=== PATIENT | male | born 1950 | race Caucasian/White ===

== ENCOUNTER 2017-11-15 08:53 | Emergency (ER) | payer OTHER ==
[~2017-11-15] VITALS: Ht 182.9 cm; Wt 85.7 kg
[2017-11-15] MEDS ORDERED: MECLIZINE HCL 25 MG TAB PO STA (09:18)
[2017-11-15] MEDS ORDERED: SODIUM CHLORIDE 0.9% 1000ML 1,000 ML IV STA (09:18)
[2017-11-15] MEDS ORDERED: LORAZEPAM 2 MG/ML 1 ML VIAL IV STA (09:18)
[2017-11-15] MEDS ORDERED: ONDANSETRON INJ 2 MG/ML 2 ML VIAL IV STA (09:18)
[2017-11-15 09:28] LABS: BASO % 0.6 %; BASO ABS # 0.04 K/uL (0-0.2); EOS % 3.8 %; EOS ABS # 0.27 K/uL (0-0.5); HEMATOCRIT 43.2 % (42-52); HEMOGLOBIN 15.3 g/dL (14.0-18.0); IG# 0.12 K/uL (0.00-0.02); LYMPH % 23.2 %; LYMPH ABS # 1.66 K/uL (1.2-3.4); MEAN CELL VOLUME 94.1 fL (80-100); MEAN CORPUSCULAR HEMOGLOBIN 33.3 pg (25-34); MEAN CORPUSCULAR HGB CONC 35.4 g/dl (32-36); MEAN PLATELET VOLUME 8.9 fL (7.4-10.4); MONO % 7.1 %; MONO ABS # 0.51 K/uL (0.11-0.59); NEUT % 63.6 %; NEUT ABS # 4.56 K/uL (1.4-6.5); PLATELET COUNT 131 K/uL (130-400); RED CELL DISTRIBUTION WIDTH CV 12.8 % (11.5-14.5); RED CELL DISTRIBUTION WIDTH SD 43.6 fL (36.4-46.3); WHITE BLOOD COUNT 7.16 K/uL (4.8-10.8)
[2017-11-15] MEDS ORDERED: TIOT1SPR INH (09:41)
[2017-11-15] MEDS ORDERED: ATRINS NEB ×2 (09:41→14:09)
[2017-11-15] MEDS ORDERED: SYMIN/8045 INH (09:41)
[2017-11-15] MEDS ORDERED: VENL75CA88 PO ×2 (09:41)
[2017-11-15] MEDS ORDERED: PRED20TA PO (09:41)
[2017-11-15] MEDS ORDERED: VNTHFA/IN INH (09:41)
[2017-11-15] MEDS ORDERED: PRAZ2CAP3 PO (09:41)
[2017-11-15] MEDS ORDERED: TRAZ100T29 PO (09:41)
[2017-11-15] MEDS ORDERED: ONDA4TAB46 PO (09:41)
[2017-11-15] MEDS ORDERED: ALBINS/ INH (09:41)
[2017-11-15] MEDS ORDERED: SIMV80TA2 PO (09:41)
[2017-11-15] MEDS ORDERED: PREG100C PO (09:41)
--- NOTE | 2017-11-15 09:56 | DIAGNOSTIC IMAGING REPORT ---
CT HEAD WITHOUT CONTRAST (CT) CLINICAL HISTORY: Nausea, dizziness. COMPARISON STUDY: No previous studies for comparison. TECHNIQUE: Axial CT of the brain is performed from the vertex to the skull base. IV contrast was not administered for this examination. A dose lowering technique was utilized adhering to the principles of ALARA. CT DOSE: 872.26 mGy.cm FINDINGS: No intra or extra-axial mass lesions are visualized. There is no CT evidence of acute cortical infarction. There is no evidence of midline shift. There is no acute hemorrhage. No calvarial fractures are visualized. There are patchy white matter hypodensities likely on a small vessel basis. There is no evidence of pathologic ventricular dilatation. There is right maxilla sinus mucosal thickening. There is mild ethmoid sinus mucosal thickening. IMPRESSION: No acute intracranial findings Electronically signed by: Jose Valencia M.D. 11/15/2017 9:54 AM Dictated Date/Time: 11/15/2017 9:53 AM
--- NOTE | 2017-11-15 10:00 | EMERGENCY ROOM VISIT NOTE ---
History Report prepared by Ninfa: Arleen Hernandez Under the Supervision of: Dr. Lizandro Dawn M.D. First contact with patient: 09:11 Chief Complaint: DIZZY Stated Complaint: NAUSEA/DIZZINESS Nursing Triage Summary: Patient arrived ALS from [place] clinic. Patient was getting out of car at [place] for appointment and was exeriencing extreme dizziness. EMS was called. Patient also experiencing nausea. Hx of vertigo in the past. History of Present Illness The patient is a 67 year old male who presents to the Emergency Room with complaints of constant dizziness starting this morning. The patient presents to the ED by EMS. He was feeling dizzy on his way to the [place] clinic today. He got out of the car and felt that he might pass out. He got down onto his hands and knees and then passed out. He notes that he is fatigued and did not sleep well last night. He has a history of vertigo. His symptoms today are worse than his previous vertigo. He has taken his medications today. He did not eat this morning. Source of History: patient Onset: this morning Position: head Quality: other (dizziness) Timing: constant Associated Symptoms: + LOC, + fatigue Review of Systems See HPI for pertinent positives & negatives. A total of 10 systems reviewed and were otherwise negative. Past Medical & Surgical Medical Problems: (1) ADHD (2) Bipolar disorder (3) BPH (benign prostatic hyperplasia) (4) Chronic back pain (5) COPD (chronic obstructive pulmonary disease) (6) Depression (7) Hyperlipidemia (8) Large cell lymphoma (9) PTSD (post-traumatic stress disorder) (10) Vertigo Surgical Problems: (1) S/P right knee arthroscopy Family History No pertinent family history stated Social History Smoking Status: Current Every Day Smoker Occupation Status: retired Current/Historical Medications Scheduled Budesonide/Formoterol Fumarate (Symbicort 80/4.5 Inhaler), 1 PUFFS INH BID Prazosin Hcl (Prazosin), 4 MG PO HS Prednisone (Prednisone), 20 MG PO DAILY Pregabalin (Lyrica), 100 MG PO TID Simvastatin (Zocor), 40 MG PO QPM Tiotropium [place] (Spiriva Respimat), 2 PUFF INH DAILY Trazodone Hcl (Trazodone), 200 MG PO HS Venlafaxine Hcl (Effexor Xr), 75 MG PO DAILY Venlafaxine Hcl (Effexor Xr), 150 MG PO HS Scheduled PRN Albuterol Hfa (Ventolin Hfa), 2 PUFFS INH Q6H PRN for Shortness of Breath Albuterol Sulf (Albuterol Sulfate), 1 DOSE INH QID PRN for SOB/Wheezing Ipratropium [place] (Ipratropium [place]), 1 VIAL NEB QID PRN for SOB/Wheezing Ondansetron Hcl (Zofran), 4 MG PO TID PRN for Nausea Allergies Coded Allergies: Iodinated Diagnostic Agents (Unverified Allergy, Unknown, unk, 11/15/17) Physical Exam Vital Signs Date Time Temp Pulse Resp B/P (MAP) Pulse Ox O2 Delivery O2 Flow Rate FiO2 11/15/17 12:05 93 Room Air 11/15/17 09:31 93 Room Air 11/15/17 09:18 70 103/71 78 100/65 82 104/70 11/15/17 09:06 36.3 61 19 122/67 93 Room Air 11/15/17 09:00 77 Physical Exam GENERAL: Awake, alert, well-appearing, in no acute distress HENT: Normocephalic, atraumatic. Oropharynx unremarkable. Positive [place] Hall[place] maneuver on the left. EYES: Normal conjunctiva. Sclera non-icteric. NECK: Supple. No nuchal rigidity. FROM. No JVD. RESPIRATORY: Clear to auscultation. CARDIAC: Regular rate, normal rhythm. Extremities warm and well perfused. Pulses equal. ABDOMEN: Soft, non-distended. No tenderness to palpation. No rebound or guarding. No masses. RECTAL: Deferred. MUSCULOSKELETAL: Chest examination reveals no tenderness. The back is symmetrical on inspection without obvious abnormality. There is no CVA tenderness to palpation. No joint edema. LOWER EXTREMITIES: Calves are equal size bilaterally and non-tender. No edema. No discoloration. NEURO: Normal sensorium. No sensory or motor deficits noted. SKIN: No rash or jaundice noted. Medical Decision & Procedures ER Provider Diagnostic Interpretation: Radiology results as stated below per my review and radiologist interpretation: CT HEAD WITHOUT CONTRAST (CT) CLINICAL HISTORY: Nausea, dizziness. COMPARISON STUDY: No previous studies for comparison. TECHNIQUE: Axial CT of the brain is performed from the vertex to the skull base. IV contrast was not administered for this examination. A dose lowering technique was utilized adhering to the principles of ALARA. CT DOSE: 872.26 mGy.cm FINDINGS: No intra or extra-axial mass lesions are visualized. There is no CT evidence of acute cortical infarction. There is no evidence of midline shift. There is no acute hemorrhage. No calvarial fractures are visualized. There are patchy white matter hypodensities likely on a small vessel basis. There is no evidence of pathologic ventricular dilatation. There is right maxilla sinus mucosal thickening. There is mild ethmoid sinus mucosal thickening. IMPRESSION: No acute intracranial findings Electronically signed by: Jose Valencia M.D. 11/15/2017 9:54 AM Dictated Date/Time: 11/15/2017 9:53 AM Laboratory Results Test 11/15/17 09:05 11/15/17 09:30 Immature Granulocyte % (Auto) 1.7 % White Blood Count 7.16 K/uL (4.8-10.8) Red Blood Count 4.59 M/uL (4.7-6.1) Hemoglobin 15.3 g/dL (14.0-18.0) Hematocrit 43.2 % (42-52) Mean Corpuscular Volume 94.1 fL (80-100) Mean Corpuscular Hemoglobin 33.3 pg (25-34) Mean Corpuscular Hemoglobin Concent 35.4 g/dl (32-36) Platelet Count 131 K/uL (130-400) Mean Platelet Volume 8.9 fL (7.4-10.4) Neutrophils (%) (Auto) 63.6 % Lymphocytes (%) (Auto) 23.2 % Monocytes (%) (Auto) 7.1 % Eosinophils (%) (Auto) 3.8 % Basophils (%) (Auto) 0.6 % Neutrophils # (Auto) 4.56 K/uL (1.4-6.5) Lymphocytes # (Auto) 1.66 K/uL (1.2-3.4) Monocytes # (Auto) 0.51 K/uL (0.11-0.59) Eosinophils # (Auto) 0.27 K/uL (0-0.5) Basophils # (Auto) 0.04 K/uL (0-0.2) Immature Granulocyte # (Auto) 0.12 K/uL (0.00-0.02) Prothrombin Time 10.3 SECONDS (9.0-12.0) Prothromb Time International Ratio 1.0 (0.9-1.1) Total Bilirubin 0.7 mg/dl (0.2-1) Direct Bilirubin 0.2 mg/dl (0-0.2) Aspartate Amino Transf (AST/SGOT) 21 U/L (15-37) Alanine Aminotransferase (ALT/SGPT) 25 U/L (12-78) Alkaline Phosphatase 86 U/L (45-117) Total Creatine Kinase 80 U/L (39-308) Creatine Kinase MB 2.8 ng/ml (0.5-3.6) Creatine Kinase MB Ratio 3.5 (0-3.0) Troponin I < 0.015 ng/ml (0-0.045) Total Protein 6.6 gm/dl (6.4-8.2) Albumin 3.8 gm/dl (3.4-5.0) Thyroid Stimulating Hormone (TSH) 1.520 uIu/ml (0.300-4.500) Urine Color YELLOW Urine Appearance CLEAR (CLEAR) Urine pH 5.5 (4.5-7.5) Urine Specific [place] 1.011 (1.000-1.030) Urine Protein NEG (NEG) Urine Glucose (UA) NEG (NEG) Urine Ketones NEG (NEG) Urine Occult Blood NEG (NEG) Urine Nitrite NEG (NEG) Urine Bilirubin NEG (NEG) Urine Urobilinogen NEG (NEG) Urine Leukocyte Esterase NEG (NEG) Labs reviewed by ED physician. Medications Administered Medications (Trade) Dose Ordered Sig/Fly Route Start Time Stop Time Status Last Admin Dose Admin Sodium Chloride 1,000 ml @ 999 mls/hr Q1H1M STAT IV 11/15/17 09:18 11/15/17 11:09 DC 11/15/17 09:18 999 MLS/HR Lorazepam (Ativan Inj) 1 mg NOW STAT IV 11/15/17 09:18 11/15/17 09:20 DC 11/15/17 09:26 1 MG Meclizine HCl (Antivert Tab) 25 mg NOW STAT PO 11/15/17 09:18 11/15/17 09:20 DC 11/15/17 09:26 25 MG Ondansetron HCl (Zofran Inj) 4 mg NOW STAT IV 11/15/17 09:18 11/15/17 09:20 DC 11/15/17 09:26 4 MG Acetaminophen (Tylenol Tab) 650 mg Q4H PRN PO 11/15/17 12:45 12/15/17 12:44 11/15/17 15:55 650 MG ECG Per My Interpretation Indication: other (dizziness) Rate (beats per minute): 62 Rhythm: normal sinus Findings: other (no ST elevation or depression, normal axis, normal intervals) Comparison ECG Date: no prior available ED Course 0912: Past medical records reviewed. The patient was evaluated in room B10. A complete history and physical examination was performed. 1150: I discussed the patient's case with NGUYEN Burkett hospitalist. She has agreed to evaluate the patient for further management and care. 1202: Upon reexamination the patient is stable. I discussed results and treatment plan with the patient. He verbalizes agreement and understanding. The patient will be evaluated for further management. Medical Decision Differential diagnosis: Etiologies such as benign positional vertigo, dehydration, hypovolemia, anemia, tumor, infection, hypoglycemia, electrolyte abnormalities, cardiac sources, intracerebral event, toxicologic, neurologic, as well as others were entertained. This is a [employer] downtime chart. This is a 67-year-old male who presents emergency department complaining of severe dizziness. Patient was given Ativan as well as 2 normal saline boluses as well as meclizine with no improvement in his symptoms. We attempted to ablate this patient with nursing staff however he did not do well. The patient at this point wishes to be admitted therefore he was discussed with the hospitalist who agreed with the patient. Medication Reconcilliation Current Medication List: was personally reviewed by me Blood Pressure Screening Patient's blood pressure: Normal blood pressure Consults Time Called: 1148 Consulting Physician: NGUYEN uBrkett hospitalist Returned Call: 1150 I discussed the patient's case with her. She has agreed to evaluate the patient for further management and care. Impression Primary Impression: Vertigo Scribe Attestation The scribe's documentation has been prepared under my direction and personally reviewed by me in its entirety. I confirm that the note above accurately reflects all work, treatment, procedures, and medical decision making performed by me. Departure Information Dispostion Being Evaluated By Hospitalist Referrals No Doctor, Assigned (PCP) Patient Instructions My [facility]
[2017-11-15] MEDS ORDERED: MECL1TAB42 PO (10:02)
[2017-11-15 12:05] VITALS: O2SAT 93; Ht 182.9 cm; Wt 85.7 kg
[2017-11-15] MEDS ORDERED: ONDANSETRON INJ 2 MG/ML 2 ML VIAL IV PRN (12:45)
[2017-11-15 12:50] LABS: ALBUMIN 3.8 gm/dl (3.4-5.0); ALKALINE PHOSPHATASE 86 U/L (45-117); ALT/SGPT 25 U/L (12-78); AST/SGOT 21 U/L (15-37); BLOOD UREA NITROGEN 14 mg/dl (7-18); CALCIUM 8.3 mg/dl (8.5-10.1); CARBON DIOXIDE 25 mmol/L (21-32); CKMB 2.8 ng/ml (0.5-3.6); CREATININE 1.09 mg/dl (0.60-1.40); GLUCOSE 111 mg/dl (70-99); POTASSIUM 4.1 mmol/L (3.5-5.1); SODIUM 137 mmol/L (136-145); TOTAL PROTEIN 6.6 gm/dl (6.4-8.2)
[2017-11-15] MEDS ORDERED: IPRA-64 INH (13:13)
[2017-11-15] MEDS ORDERED: MECLIZINE HCL 25 MG TAB PO PRN (13:15)
[2017-11-15] MEDS ORDERED: IV FLUIDS COMPLETED PRN (13:45)
[2017-11-15] MEDS ORDERED: PRVIN525X INH (14:09)
[2017-11-15 14:23] VITALS: BP 144/85; PULSE 66; TEMP 36.8; O2SAT 94
[2017-11-15] MEDS: SODIUM CHLORIDE 0.9% 1000ML 1,000 ML IV SCH ×2 (14:35→23:32)
--- NOTE | 2017-11-15 15:28 | History and Physical ---
History & Physical Date & Time of Service: Nov 15, 2017 ~ 12:15 Chief Complaint: Dizziness Primary Care Physician: [facility] History of Present Illness Source: patient 67-year-old male who presents to the ED with a chief complaint of dizziness. Patient reports he was driving himself to an appointment at the [place] when while driving he developed dizziness. He reports that once he arrived to the [place] clinic, the dizziness progressively got worse. He describes a sensation of the room spinning around him. He also reports associated lightheadedness and blurred vision. He reports feeling generally weak. No loss of consciousness or unilateral numbness or tingling. He denies chest pain and shortness of breath. He had some mild nausea but denies any vomiting. No abdominal pain or diarrhea. He reports chronic right side and right hip pain that has been extensively evaluated in the past. No fevers or chills. He denies any urinary symptoms. In the ED, head CT is negative for acute findings and patient is hemodynamically stable. He was given IVF, IV Ativan, meclizine, and IV Zofran. Patient reports improvement in his symptoms however he is still having difficulty ambulating. Past Medical/Surgical History Medical Problems: (1) ADHD Status: Chronic (2) Bipolar disorder Status: Chronic (3) BPH (benign prostatic hyperplasia) Status: Chronic (4) Chronic back pain Status: Chronic (5) COPD (chronic obstructive pulmonary disease) Status: Chronic (6) Depression Status: Chronic (7) Hyperlipidemia Status: Chronic (8) Large cell lymphoma Status: Chronic (9) PTSD (post-traumatic stress disorder) Status: Chronic (10) Vertigo Status: Resolved Surgical Problems: (1) S/P right knee arthroscopy Status: Chronic Family History Contributory Social History Smoking Status: Current Every Day Smoker Alcohol Use: none Allergies Coded Allergies: Iodinated Diagnostic Agents (Unverified Allergy, Unknown, unk, 11/15/17) Home Medications Scheduled Budesonide/Formoterol Fumarate (Symbicort 80/4.5 Inhaler), 1 PUFFS INH BID Prazosin Hcl (Prazosin), 4 MG PO HS Prednisone (Prednisone), 20 MG PO DAILY Pregabalin (Lyrica), 100 MG PO TID Simvastatin (Zocor), 40 MG PO QPM Tiotropium [place] (Spiriva Respimat), 2 PUFF INH DAILY Trazodone Hcl (Trazodone), 200 MG PO HS Venlafaxine Hcl (Effexor Xr), 75 MG PO DAILY Venlafaxine Hcl (Effexor Xr), 150 MG PO HS Scheduled PRN Albuterol Hfa (Ventolin Hfa), 2 PUFFS INH Q6H PRN for Shortness of Breath Albuterol Sulf (Albuterol Sulfate), 1 DOSE INH QID PRN for SOB/Wheezing Ipratropium [place] (Ipratropium [place]), 1 VIAL NEB QID PRN for SOB/Wheezing Ondansetron Hcl (Zofran), 4 MG PO TID PRN for Nausea Review of Systems ROS per HPI, all other systems reviewed and negative Physical Exam Vital Signs Date Time Temp Pulse Resp B/P (MAP) Pulse Ox O2 Delivery O2 Flow Rate FiO2 11/15/17 14:23 36.8 66 18 144/85 (104) 94 Room Air 11/15/17 12:59 59 11/15/17 12:05 93 Room Air 11/15/17 09:31 93 Room Air 11/15/17 09:18 70 103/71 78 100/65 82 104/70 11/15/17 09:06 36.3 61 19 122/67 93 Room Air 11/15/17 09:00 77 General Appearance: WD/WN, no apparent distress Head: normocephalic, atraumatic Eyes: normal inspection, PERRL, EOMI, sclerae normal ENT: hearing grossly normal, + pertinent finding (Mucous membranes moist) Neck: supple, no JVD, trachea midline Respiratory/Chest: lungs clear, normal breath sounds, no respiratory distress Cardiovascular: regular rate, rhythm, no edema, normal peripheral pulses Abdomen/GI: normal bowel sounds, non tender, soft, no organomegaly Extremities/Musculoskelatal: normal inspection, no calf tenderness, normal capillary refill Neurologic/Psych: no motor/sensory deficits, oriented x 3, + pertinent finding (Patient somewhat lethargic, falling asleep, and mumbling during the beginning of my exam however mentation improved and patient was able to perform neuro exam , no focal deficits noted) Skin: normal color, warm/dry Diagnostics Laboratory Results Results Past 24 Hours Test 11/15/17 09:05 11/15/17 09:30 11/15/17 14:23 Range/Units White Blood Count 7.16 4.8-10.8 K/uL Red Blood Count 4.59 4.7-6.1 M/uL Hemoglobin 15.3 14.0-18.0 g/dL Hematocrit 43.2 42-52 % Mean Corpuscular Volume 94.1 80-100 fL Mean Corpuscular Hemoglobin 33.3 25-34 pg Mean Corpuscular Hemoglobin Concent 35.4 32-36 g/dl Platelet Count 131 130-400 K/uL Mean Platelet Volume 8.9 7.4-10.4 fL Neutrophils (%) (Auto) 63.6 % Lymphocytes (%) (Auto) 23.2 % Monocytes (%) (Auto) 7.1 % Eosinophils (%) (Auto) 3.8 % Basophils (%) (Auto) 0.6 % Neutrophils # (Auto) 4.56 1.4-6.5 K/uL Lymphocytes # (Auto) 1.66 1.2-3.4 K/uL Monocytes # (Auto) 0.51 0.11-0.59 K/uL Eosinophils # (Auto) 0.27 0-0.5 K/uL Basophils # (Auto) 0.04 0-0.2 K/uL RDW Standard Deviation 43.6 36.4-46.3 fL RDW Coefficient of Variation 12.8 11.5-14.5 % Immature Granulocyte % (Auto) 1.7 % Immature Granulocyte # (Auto) 0.12 0.00-0.02 K/uL Prothrombin Time 10.3 9.0-12.0 SECONDS Prothromb Time International Ratio 1.0 0.9-1.1 Sodium Level 137 136-145 mmol/L Potassium Level 4.1 3.5-5.1 mmol/L Chloride Level 107 98-107 mmol/L Carbon Dioxide Level 25 21-32 mmol/L Anion Gap 6.0 3-11 mmol/L Blood Urea Nitrogen 14 7-18 mg/dl Creatinine 1.09 0.60-1.40 mg/dl Est Creatinine Clear Calc Drug Dose 70.2 ml/min Estimated GFR () 79.8 Estimated GFR (Non- 68.9 BUN/Creatinine Ratio 13.2 10-20 Random Glucose 111 70-99 mg/dl Calcium Level 8.3 8.5-10.1 mg/dl Total Bilirubin 0.7 0.2-1 mg/dl Direct Bilirubin 0.2 0-0.2 mg/dl Aspartate Amino Transf (AST/SGOT) 21 15-37 U/L Alanine Aminotransferase (ALT/SGPT) 25 12-78 U/L Alkaline Phosphatase 86 45-117 U/L Total Creatine Kinase 80 39-308 U/L Creatine Kinase MB 2.8 0.5-3.6 ng/ml Creatine Kinase MB Ratio 3.5 0-3.0 Troponin I < 0.015 0-0.045 ng/ml Total Protein 6.6 6.4-8.2 gm/dl Albumin 3.8 3.4-5.0 gm/dl Thyroid Stimulating Hormone (TSH) 1.520 0.300-4.500 uIu/ml Urine Color YELLOW Urine Appearance CLEAR CLEAR Urine pH 5.5 4.5-7.5 Urine Specific [place] 1.011 1.000-1.030 Urine Protein NEG NEG Urine Glucose (UA) NEG NEG Urine Ketones NEG NEG Urine Occult Blood NEG NEG Urine Nitrite NEG NEG Urine Bilirubin NEG NEG Urine Urobilinogen NEG NEG Urine Leukocyte Esterase NEG NEG Diagnostic Radiology HEAD CT IMPRESSION: No acute intracranial findings EKG EKG: NSR Impression Assessment and Plan VERTIGO -Admit to telemetry to monitor for arrhythmias -Patient presenting after dizziness began while driving this morning, patient describes sensation of room spinning around him; in the ED, head CT negative for acute findings -S/P IVF, IV Ativan, IV Zofran, and meclizine in the ED with improvement in symptoms however patient is still having difficulty ambulating -Continue supportive care with IVF and as needed meclizine -? BPPV vs ? Mnire's disease, may need outpatient ENT evaluation -PT consult for Meseret maneuver COPD -Stable, no signs of acute exacerbation -Continue home inhalers CHRONIC PAIN, HISTORY OF PTSD, BIPOLAR -Continue home medications DYSLIPIDEMIA -Continue statin DVT PROPHYLAXIS -SQ Lovenox DISPOSITION -The patient will be placed as observation status for now until further work up is complete. Attending Note: Patient is a 67 yr old male with H/O Vertigo, Tinnitus, blurry vision, chronic recurrent headaches and other problems presents with history of worsening dizziness which he describes as "room spinning". Patient is a poor historian. Also reports having mild occipital headache. Reports associated Nausea. CT head showed no acute intracranial findings. Orthostatics were negative as well. Please review HPI for complete details Physical Exam: Vitals signs as noted above General Appearance:Moderately built and nourished, no apparent distress Head: normocephalic, Atraumatic Eyes: normal inspection, EOMI, PERRL, +Blurry vision Neck: supple, Trachea midline Respiratory/Chest: Decreased breath sounds, CTA Cardiovascular: S1, S2, No murmur Abdomen/GI:Soft, Non tender, Bowel sounds present Extremities/Musculoskelatal:normal inspection, no edema Neurologic/Psych:AAOX3, grossly no focal neurological deficits Skin:normal color,warm Assessment and Plan: Vertigo: H/O Chronic Dizziness and Tinnitus DD: Mnire's disease/BPPV CT head:No acute intracranial findings Orthostatics Negative PT for Meseret's Monitor in Tele Gentle IV fluids Low salt diet Denies alcohol use/excess Caffeine use ENT eval as outpatient I personally reviewed the record. Patient is interviewed and examined at bedside. Patient's care is coordinated with Dora Bird PLANER SETTER. Please refer to the documentation above for details of patient's presentation and for discussion of other issues. Advanced Directives Existing Living Will: Yes Existing Power of Road Commissioner: Yes Resuscitation Status VTE Prophylaxis Will order VTE Prophylaxis: Yes
[2017-11-15 15:33] VITALS: BP 149/82; PULSE 77; TEMP 36.6; O2SAT 93
[2017-11-15] MEDS: ACETAMINOPHEN 325 MG TAB PO PRN (15:55)
[2017-11-15 19:39] VITALS: BP_SYST 151; BP_SYST 155; BP_DIAS 83; BP_DIAS 87; PULSE 71; PULSE 76
[2017-11-15 19:40] VITALS: BP 153/89; PULSE 80
[2017-11-15 20:15] VITALS: BP 145/84; PULSE 63; TEMP 36.6; O2SAT 94
[2017-11-15] MEDS: BUDESONIDE/FORMOTEROL FUMARATE 80/4.5 60 PUFFS/INHALER INH SCH (20:47)
[2017-11-15] MEDS: PREGABALIN 100 MG CAP PO SCH (20:49)
[2017-11-15] MEDS ORDERED: TRAZODONE HCL 100 MG TAB PO SCH (21:00)
[2017-11-15] MEDS ORDERED: PRAZOSIN HCL 1 MG CAP PO SCH (21:00)
[2017-11-15] MEDS ORDERED: SIMVASTATIN 40 MG TAB PO SCH (21:00)
[2017-11-15] MEDS ORDERED: VENLAFAXINE HCL XR 75 MG CAPXR PO SCH (21:00)
[2017-11-15] MEDS ORDERED: ENOXAPARIN 40 MG/0.4 ML SYR SC SCH (22:00)
[2017-11-16 00:03] VITALS: BP 135/77; PULSE 67; TEMP 36.4; O2SAT 92
[2017-11-16 04:26] VITALS: BP 142/84; PULSE 77; TEMP 36.6; O2SAT 90
[2017-11-16 05:58] LABS: HEMATOCRIT 41.1 % (42-52); HEMOGLOBIN 13.9 g/dL (14.0-18.0); MEAN CELL VOLUME 94.3 fL (80-100); MEAN CORPUSCULAR HEMOGLOBIN 31.9 pg (25-34); MEAN CORPUSCULAR HGB CONC 33.8 g/dl (32-36); PLATELET COUNT 122 K/uL (130-400); RED CELL DISTRIBUTION WIDTH CV 12.5 % (11.5-14.5); WHITE BLOOD COUNT 5.95 K/uL (4.8-10.8)
[2017-11-16 06:27] LABS: CALCIUM 7.6 mg/dl (8.5-10.1); CREATININE 1.09 mg/dl (0.60-1.40); POTASSIUM 3.9 mmol/L (3.5-5.1)
[2017-11-16 07:03] VITALS: BP 119/82; PULSE 80; TEMP 36.5; O2SAT 92
[2017-11-16] MEDS: PREGABALIN 100 MG CAP PO SCH ×2 (07:40→14:07)
[2017-11-16] MEDS: BUDESONIDE/FORMOTEROL FUMARATE 80/4.5 60 PUFFS/INHALER INH SCH (07:40)
[2017-11-16] MEDS: ACETAMINOPHEN 325 MG TAB PO PRN (07:48)
[2017-11-16] MEDS: SODIUM CHLORIDE 0.9% 1000ML 1,000 ML IV SCH (08:54)
[2017-11-16] MEDS ORDERED: TIOTROPIUM BROMIDE 5 PUFF/90 MCG INH INH SCH (09:00)
[2017-11-16] MEDS ORDERED: VENLAFAXINE HCL XR 75 MG CAPXR PO SCH (09:00)
[2017-11-16 11:05] VITALS: BP 154/85; PULSE 67; TEMP 36.7; O2SAT 93
[2017-11-16] MEDS ORDERED: NURSING VERBAL MED ORDER ONE (11:30)
[2017-11-16] MEDS ORDERED: IBUPROFEN 600 MG TAB PO PRN (11:30)
--- NOTE | 2017-11-16 13:33 | Progress Note ---
Internal Med Progress Note Date of Service: Nov 16, 2017. Provider Documentation: SUBJECTIVE: The patient was seen and examined in telemetry unit He has significant past medical history including ongoing tobacco abuse, depression, history of dizziness and vertigo in the past and ADHD He was admitted yesterday with profound dizziness and weakness He has been feeling a little better today and clearly when investigations came out to be negative He wants to go home today OBJECTIVE: Vital Signs-as noted below Exam: General-no apparent distress Eyes-normal, no nystagmus ENT-normal Neck= supple, no neck stiffness, no vertigo on rapid movement of neck Lungs-clear to auscultate bilaterally Heart-regular, no murmur appreciated Abdomen-benign, nontender, no organomegaly Extremities-no edema Neuro-alert, awake and oriented 3 Has history of peripheral neuropathy No significant motor deficit appreciated Lab data as noted below. ASSESSMENT & PLAN: VERTIGO -Admit to telemetry to monitor for arrhythmias -Patient presenting after dizziness began while driving this morning, patient describes sensation of room spinning around him; in the ED, head CT negative for acute findings -S/P IVF, IV Ativan, IV Zofran, and meclizine in the ED with improvement in symptoms however patient is still having difficulty ambulating -? BPPV vs ? Mnire's disease, may need outpatient ENT evaluation -CT of the head negative, electrolytes are normal, no postural hypotension, ambulating well without significant dizziness -PT evaluation pending -Clinically better today, if continues to improve we will send him home this afternoon/evening COPD -Stable, no signs of acute exacerbation -Continue home inhalers -No acute symptoms CHRONIC PAIN, HISTORY OF PTSD, BIPOLAR -Continue home medications DYSLIPIDEMIA -Continue statin DVT PROPHYLAXIS -SQ Lovenox DISPOSITION -The patient will be placed as observation status for now until further work up is complete. Vital Signs: Date Time Temp Pulse Resp B/P (MAP) Pulse Ox O2 Delivery O2 Flow Rate FiO2 11/16/17 11:05 36.7 67 18 154/85 (108) 93 Room Air 11/16/17 08:00 Room Air 11/16/17 07:03 36.5 80 20 119/82 (94) 92 Room Air 11/16/17 04:26 36.6 77 20 142/84 (103) 90 Room Air 11/16/17 00:03 36.4 67 18 135/77 (96) 92 Room Air 11/16/17 00:00 Room Air 11/15/17 20:15 36.6 63 18 145/84 (104) 94 Room Air 11/15/17 19:40 80 153/89 (110) 11/15/17 19:39 76 151/83 (105) 11/15/17 19:39 71 155/87 (109) 11/15/17 16:00 Room Air 11/15/17 15:33 36.6 77 16 149/82 (104) 93 Room Air 11/15/17 14:23 36.8 66 18 144/85 (104) 94 Room Air Lab Results: Results Past 24 Hours Test 11/15/17 15:39 11/16/17 05:36 Range/Units Ethyl Alcohol mg/dL < 3.0 0-3 mg/dl White Blood Count 5.95 4.8-10.8 K/uL Red Blood Count 4.36 4.7-6.1 M/uL Hemoglobin 13.9 14.0-18.0 g/dL Hematocrit 41.1 42-52 % Mean Corpuscular Volume 94.3 80-100 fL Mean Corpuscular Hemoglobin 31.9 25-34 pg Mean Corpuscular Hemoglobin Concent 33.8 32-36 g/dl RDW Standard Deviation 43.0 36.4-46.3 fL RDW Coefficient of Variation 12.5 11.5-14.5 % Platelet Count 122 130-400 K/uL Mean Platelet Volume 9.0 7.4-10.4 fL Sodium Level 139 136-145 mmol/L Potassium Level 3.9 3.5-5.1 mmol/L Chloride Level 110 98-107 mmol/L Carbon Dioxide Level 24 21-32 mmol/L Anion Gap 5.0 3-11 mmol/L Blood Urea Nitrogen 12 7-18 mg/dl Creatinine 1.09 0.60-1.40 mg/dl Est Creatinine Clear Calc Drug Dose 70.2 ml/min Estimated GFR () 79.8 Estimated GFR (Non- 68.9 BUN/Creatinine Ratio 10.9 10-20 Random Glucose 82 70-99 mg/dl Calcium Level 7.6 8.5-10.1 mg/dl
[2017-11-16 14:42] VITALS: BP 154/85; PULSE 67; TEMP 36.7; O2SAT 93
--- NOTE | 2017-11-16 15:08 | Discharge Instructions ---
Discharge Instructions Date of Service Nov 16, 2017. Admission Reason for Admission: Vertigo Discharge Discharge Diagnosis / Problem: Acute On Chronic dizziness,COPD,PTSD Discharge Goals Goal(s): Prevent Disease Progression Activity Recommendations Activity Limitations: resume your previous activity . Instructions / Follow-Up Instructions / Follow-Up Please make an appointment with your PCP in 1 week Current Hospital Diet Patient's current hospital diet: Regular Diet, Low Sodium Diet (2gm Na) Discharge Diet Recommended Diet: Regular Diet, Low Sodium Diet (2gm Na) Pending Studies Studies pending at discharge: no Medical Emergencies . Who to Call and When: Medical Emergencies: If at any time you feel your situation is an emergency, please call 911 immediately. . Non-Emergent Contact Non-Emergency issues call your: Primary Care Provider . Past History Medical & Surgical History: (1) Dizziness and giddiness (2) ADHD (3) Bipolar disorder (4) PTSD (post-traumatic stress disorder) (5) COPD (chronic obstructive pulmonary disease) (6) Chronic back pain (7) Depression (8) Large cell lymphoma (9) S/P right knee arthroscopy . "Provider Documentation" section prepared by Sho Fraire. .
--- NOTE | 2017-11-17 08:02 | Discharge Summary ---
Discharge Summary Date of Service Nov 17, 2017. Discharge Summary Admission Date: Nov 15, 2017 at 12:45 Discharge Date: Nov 16, 2017 Discharge Disposition: Home Principal Diagnosis: Acute On Chronic dizziness,COPD,PTSD Secondary Diagnoses/Problems: Please see H&P and Hospital progress note Medication Reconciliation Continued Medications: Albuterol Hfa (Ventolin Hfa) 200 Puffs/00953 Mcg Aers 2 PUFFS INH Q6H PRN for Shortness of Breath, #1 INHALER Albuterol Sulf (Albuterol Sulfate) 2.5 Mg/0.5 Ml Nebu 1 DOSE INH QID PRN for SOB/Wheezing Budesonide/Formoterol Fumarate (Symbicort 80/4.5 Inhaler) Aero 1 PUFFS INH BID, INHALER Ipratropium [place] (Ipratropium [place]) 0.5 Mg/2.5 Ml Nebu 1 VIAL NEB QID PRN for SOB/Wheezing for 30 Days, #300 ML 5 Refills Ondansetron Hcl (Zofran) 4 Mg Tab 4 MG PO TID PRN for Nausea, TAB Prazosin Hcl (Prazosin) 2 Mg Cap 4 MG PO HS, CAP Prednisone (Prednisone) 20 Mg Tab 20 MG PO DAILY, TAB Pregabalin (Lyrica) 100 Mg Cap 100 MG PO TID, CAP Simvastatin (Zocor) 80 Mg Tab 40 MG PO QPM, TAB Tiotropium [place] (Spiriva Respimat) 2.5 Mcg/Act Spr 2 PUFF INH DAILY, INHALER Trazodone Hcl (Trazodone) 100 Mg Tab 200 MG PO HS, TAB Venlafaxine Hcl (Effexor Xr) 75 Mg Cap 75 MG PO DAILY for 30 Days, #30 CAP 1 Refill Venlafaxine Hcl (Effexor Xr) 75 Mg Cap 150 MG PO HS for 30 Days, CAP Admission Information HPI (per Admitting provider): 67-year-old male who presents to the ED with a chief complaint of dizziness. Patient reports he was driving himself to an appointment [place] the [place] when while driving he developed dizziness. He reports that once he arrived to the [facility] clinic, the dizziness progressively got worse. He describes a sensation of the room spinning around him. He also reports associated lightheadedness and blurred vision. He reports feeling generally weak. No loss of consciousness or unilateral numbness or tingling. He denies chest pain and shortness of breath. He had some mild nausea but denies any vomiting. No abdominal pain or diarrhea. He reports chronic right side and right hip pain that has been extensively evaluated in the past. No fevers or chills. He denies any urinary symptoms. In the ED, head CT is negative for acute findings and patient is hemodynamically stable. He was given IVF, IV Ativan, meclizine, and IV Zofran. Patient reports improvement in his symptoms however he is still having difficulty ambulating. Physical Exam (per Admitting): General Appearance: WD/WN, no apparent distress Head: normocephalic, atraumatic Eyes: normal inspection, PERRL, EOMI, sclerae normal ENT: hearing grossly normal, + pertinent finding (Mucous membranes moist) Neck: supple, no JVD, trachea midline Respiratory/Chest: lungs clear, normal breath sounds, no respiratory distress Cardiovascular: regular rate, rhythm, no edema, normal peripheral pulses Abdomen/GI: normal bowel sounds, non tender, soft, no organomegaly Extremities/Musculoskelatal: normal inspection, no calf tenderness, normal capillary refill Neurologic/Psych: no motor/sensory deficits, oriented x 3, + pertinent finding (Patient somewhat lethargic, falling asleep, and mumbling during the beginning of my exam however mentation improved and patient was able to perform neuro exam, no focal deficits noted) Skin: normal color, warm/dry Hospital Course VERTIGO -Admit to telemetry to monitor for arrhythmias -Patient presenting after dizziness began while driving this morning, patient describes sensation of room spinning around him; in the ED, head CT negative for acute findings -S/P IVF, IV Ativan, IV Zofran, and meclizine in the ED with improvement in symptoms however patient is still having difficulty ambulating -? BPPV vs ? Mnire's disease, may need outpatient ENT evaluation -CT of the head negative, electrolytes are normal, no postural hypotension, ambulating well without significant dizziness -PT evaluation pending -Clinically better today, if continues to improve we will send him home this afternoon/evening COPD -Stable, no signs of acute exacerbation -Continue home inhalers -No acute symptoms CHRONIC PAIN, HISTORY OF PTSD, BIPOLAR -Continue home medications DYSLIPIDEMIA -Continue statin DVT PROPHYLAXIS -SQ Lovenox DISPOSITION -The patient will be placed as observation status for now until further work up is complete. Total time spent on discharge = 35 minutes This includes examination of the patient, discharge planning, medication reconciliation, and communication with other providers. Discharge Instructions Date of Service Nov 16, 2017. Admission Reason for Admission: Vertigo Discharge Discharge Diagnosis / Problem: Acute On Chronic dizziness,COPD,PTSD Discharge Goals Goal(s): Prevent Disease Progression Activity Recommendations Activity Limitations: resume your previous activity . Instructions / Follow-Up Instructions / Follow-Up Please make an appointment with your PCP in 1 week Current Hospital Diet Patient's current hospital diet: Regular Diet, Low Sodium Diet (2gm Na) Discharge Diet Recommended Diet: Regular Diet, Low Sodium Diet (2gm Na) Pending Studies Studies pending at discharge: no Medical Emergencies . Who to Call and When: Medical Emergencies: If at any time you feel your situation is an emergency, please call 911 immediately. . Non-Emergent Contact Non-Emergency issues call your: Primary Care Provider . Past History Medical & Surgical History: (1) Dizziness and giddiness (2) ADHD (3) Bipolar disorder (4) PTSD (post-traumatic stress disorder) (5) COPD (chronic obstructive pulmonary disease) (6) Chronic back pain (7) Depression (8) Large cell lymphoma (9) S/P right knee arthroscopy
== END 2017-11-16 17:00 | disposition home or self-care (01) ==
LOC: EDBD 08:53 → C.EDB 08:54 → C.MED 12:45 → ENRESERV 13:00
PROVIDERS: ADMIT Internal Medicine; ATTEND Internal Medicine
DX: R42 Dizziness and giddiness (principal); J44.9 Chronic obstructive pulmonary disease, unspecified; F43.10 Post-traumatic stress disorder, unspecified; Z79.899 Other long term (current) drug therapy; E78.5 Hyperlipidemia, unspecified; F17.200 Nicotine dependence, unspecified, uncomplicated; N40.0 Benign prostatic hyperplasia without lower urinary tract symptoms; F32.9 Major depressive disorder, single episode, unspecified